=== PATIENT | female | born 2000 | race Caucasian/White ===

== ENCOUNTER 2023-08-19 20:36 | Emergency (ER) | payer OTHER ==
[2023-08-19 21:03] LABS: BILIRUBIN,URINE NEGATIVE (NEGATIVE); GLUCOSE, URINE (UA) NEGATIVE (NEGATIVE); KETONES,URINE (UA) TRACE mg/dL (NEGATIVE); LEUKOCYTE ESTERASE, URINE NEGATIVE (NEGATIVE); NITRITE,URINE NEGATIVE (NEGATIVE); OCCULT BLOOD,URINE TRACE-INTA (NEGATIVE); PROTEIN,URINE NEGATIVE (NEGATIVE); UROBILINOGEN,URINE 0.2 (NORMAL) E.U./dL (NORMAL)
[2023-08-19 21:05] LABS: CLARITY,URINE CLEAR (CLEAR); HCG UR QUAL NEGATIVE
[2023-08-19 21:13] LABS: BASOPHILS % (AUTO) 0.4 %; EOSINOPHILS % (AUTO) 0.2 %; HCT - HEMATOCRIT 43.1 % (37.0-47.0); HGB - HEMOGLOBIN 14.3 g/dL (12.0-16.0); LYMPHOCYTES # (AUTO) 1.6 10^3/uL (1.5-3.5); LYMPHOCYTES % (AUTO) 19.6 %; MEAN CORPUSCULAR HEMOGLOBIN 32.2 pg (27.0-31.0); MEAN CORPUSCULAR HGB CONC 33.2 g/dL (32.0-36.0); MEAN CORPUSCULAR VOLUME 97.1 fL (81.0-99.0); MEAN PLATELET VOLUME 11.4 fL (7.9-10.8); MONOCYTES # (AUTO) 0.7 10^3/uL (0.0-1.0); MONOCYTES % (AUTO) 8.7 %; NEUTROPHILS # (AUTO) 5.9 10^3/uL (1.5-6.6); NEUTROPHILS % (AUTO) 70.9 %; PLT - PLATELET COUNT 255 10^3/uL (130-450); RED BLOOD COUNT 4.44 10^6/uL (4.20-5.40); RED CELL DISTRIBUTION WIDTH 11.8 % (12.0-15.0); WHITE BLOOD COUNT 8.3 x10^3/uL (4.8-10.8)
[2023-08-19 21:24] LABS: ALBUMIN 4.8 g/dL (3.2-5.5); ALBUMIN/GLOBULIN RATIO 1.7 (1.0-2.2); BILIRUBIN,TOTAL 0.6 mg/dL (0.2-1.0); CALCIUM 9.8 mg/dL (8.5-10.3); CREATININE 0.7 mg/dL (0.6-1.3); POTASSIUM 3.8 mmol/L (3.5-4.5); TOTAL PROTEIN 7.7 g/dL (6.4-8.9)
--- NOTE | 2023-08-19 21:35 | ED Physician Documentation ---
PD HPI ABD PAIN - Stated complaint Stated Complaint: LOWER RT ABD PX - Chief complaint Chief Complaint: Abd Pain - History obtained from History obtained from: Patient - Additional information Additional information: 23-year-old female presents by private vehicle from home for 3 days of intermittent, nonradiating, right-sided lower abdominal pain. Patient states that she has health anxiety and has been complaining to her about her abdominal pain, who is [place]. requested that the patient be evaluated in the emergency department. Patient is currently pain-free. Denies nausea, vomiting, vaginal bleeding, fevers, other complaints. She states that she did have constipation prior to symptom onset, but did have a bowel movement yesterday. Review of Systems Constitutional: denies: Fever, Chills Cardiac: denies: Chest pain / pressure, Palpitations, Calf pain Respiratory: denies: Dyspnea, Cough GI: reports: Abdominal Pain, Constipation. denies: Nausea, Vomiting, Diarrhea : denies: Dysuria, Frequency, Hesitancy, Unable to Void, Vaginal bleeding Skin: denies: Rash, Lesions, Abrasion (s) Neurologic: denies: Generalized weakness, Focal weakness, Numbness PD PAST MEDICAL HISTORY - Past Medical History Past Medical History: No - Past Surgical History Past Surgical History: No - Present Medications Home Medications: Ambulatory Orders Medication Instructions Recorded Confirmed No Known Home Medications 08/19/23 08/19/23 - Allergies Allergies/Adverse Reactions: Allergies Allergy/AdvReac Type Severity Reaction Status Date / Time No Known Drug Allergies Allergy Verified 08/19/23 20:52 - Social History Does the pt smoke?: No Smoking Status: Never smoker Does the pt drink ETOH?: No Does the pt have substance abuse?: No - Immunizations Immunizations are current?: Yes - POLST Patient has POLST: No PD ED PE NORMAL - Vitals Vital signs reviewed: Yes - General General: Alert and oriented X 3, No acute distress, Well developed/nourished - Cardiac Cardiac: RRR, Strong equal pulses - Respiratory Respiratory: No respiratory distress, Clear bilaterally - Abdomen Abdomen: Soft, Non tender, Non distended, No organomegaly, Other (no reproducible tenderness to palpation) - Derm Derm: Normal color, Warm and dry, No rash - Extremities Extremities: No deformity, No tenderness to palpate, Normal ROM s pain Results - Vitals Vitals: Vital Signs - 24 hr 08/19/23 08/19/23 20:40 21:55 Temperature 37.3 C 36.4 C L Heart Rate 116 H 102 H Respiratory 16 16 Rate Blood Pressure 137/86 H 128/70 O2 Saturation 96 97 Oxygen O2 Source Room air - Labs Labs: Laboratory Tests 08/19/23 08/19/23 08/19/23 20:55 20:55 21:06 WBC 8.3 RBC 4.44 Hgb 14.3 Hct 43.1 MCV 97.1 MCH 32.2 H MCHC 33.2 RDW 11.8 L Plt Count 255 MPV 11.4 H Neut # (Auto) 5.9 Lymph # (Auto) 1.6 [place] # (Auto) 0.7 Eos # (Auto) 0.0 Baso # (Auto) 0.0 Absolute Nucleated RBC 0.00 Nucleated RBC % 0.0 Sodium Potassium Chloride Carbon Dioxide Anion Gap BUN Creatinine Estimated GFR (MDRD) Glucose Calcium Total Bilirubin AST ALT Alkaline Phosphatase Total Protein Albumin Globulin Albumin/Globulin Ratio Lipase Urine Color YELLOW Urine Clarity CLEAR Urine pH 6.0 Ur Specific [place] 1.025 Urine Protein NEGATIVE Urine Glucose (UA) NEGATIVE Urine Ketones TRACE Urine Occult Blood TRACE-INTA Urine Nitrite NEGATIVE Urine Bilirubin NEGATIVE Urine Urobilinogen 0.2 (NORMAL) Ur Leukocyte Esterase NEGATIVE Ur Microscopic Review NOT INDICATED Urine Culture Comments NOT INDICATED Urine HCG, Qual NEGATIVE 08/19/23 21:06 WBC RBC Hgb Hct MCV MCH MCHC RDW Plt Count MPV Neut # (Auto) Lymph # (Auto) [place] # (Auto) Eos # (Auto) Baso # (Auto) Absolute Nucleated RBC Nucleated RBC % Sodium 139 Potassium 3.8 Chloride 102 Carbon Dioxide 23 Anion Gap 14.0 H BUN 11 Creatinine 0.7 Estimated GFR (MDRD) 102 Glucose 105 H Calcium 9.8 Total Bilirubin 0.6 AST 22 ALT 24 Alkaline Phosphatase 43 Total Protein 7.7 Albumin 4.8 Globulin 2.9 Albumin/Globulin Ratio 1.7 Lipase 20 Urine Color Urine Clarity Urine pH Ur Specific [place] Urine Protein Urine Glucose (UA) Urine Ketones Urine Occult Blood Urine Nitrite Urine Bilirubin Urine Urobilinogen Ur Leukocyte Esterase Ur Microscopic Review Urine Culture Comments Urine HCG, Qual PD Medical Decision Making - ED course Complexity details: reviewed results, re-evaluated patient, considered differential, d/w patient ED course: 3 days of intermittent right-sided abdominal pain. Patient states that at the worst the pain is a 3 or 4, however she does have health anxiety is concerned that there may be a problem with her appendix. Laboratory work is unremarkable, no leukocytosis, no left shift, no sterile pyuria. Abdomen is soft, there is absolutely no reproducible tenderness to light or deep palpation. With normal labs and reassuring exam this is highly unlikely to be appendicitis. Question if patient possibly has ovarian cysts. Currently no ultrasound in house to perform formal pelvic ultrasound. Discussed results of labs with patient and reassuring physical exam findings. Shared decision making with patient, I recommended against CT at this time given the normal exam and normal labs. Patient is in agreement, she states that she feels reassured by being evaluated in the emergency department, she will follow with primary care and [facility] if she continues to experience symptoms and will return to the emergency department if her pain worsens. Departure - Departure Disposition: 01 Home, Self Care Clinical Impression: Abdominal pain Qualifiers: Abdominal location: right lower quadrant Qualified Code(s): R10.31 - Right lower quadrant pain Condition: Stable Instructions: ED Abdominal Pain Female Non-Specific Abdominal Pain Comments: Take Tylenol and Motrin as needed for pain. Follow-up with either primary care physician or [facility]. As we discussed you may have ovarian cysts contributing to your pain, but we do not currently have ultrasound in the ED to confirm this diagnosis. If your pain becomes severe, worsens, or you develop fevers and vomiting please return for repeat evaluation. Forms: PCP List Discharge Date/Time: 08/19/23 21:55
[2023-08-19 22:24] VITALS: BP 128/70; O2SAT 97
== END 2023-08-19 21:55 | disposition home or self-care (01) ==
LOC: ED 20:36
DX: R10.31 Right lower quadrant pain (principal)
CPT/HCPCS: 36415; 80053; 81001; 81003; 81025; 83690; 85025; 87086; 99283

== ENCOUNTER 2023-09-10 09:47 | Emergency (ER) | payer OTHER ==
[2023-09-10 10:15] VITALS: O2SAT 99
[2023-09-10 12:12] LABS: BASOPHILS % (AUTO) 0.3 %; EOSINOPHILS % (AUTO) 0.3 %; HCT - HEMATOCRIT 43.2 % (37.0-47.0); HGB - HEMOGLOBIN 14.3 g/dL (12.0-16.0); LYMPHOCYTES # (AUTO) 1.2 10^3/uL (1.5-3.5); LYMPHOCYTES % (AUTO) 17.3 %; MEAN CORPUSCULAR HEMOGLOBIN 32.2 pg (27.0-31.0); MEAN CORPUSCULAR HGB CONC 33.1 g/dL (32.0-36.0); MEAN CORPUSCULAR VOLUME 97.3 fL (81.0-99.0); MEAN PLATELET VOLUME 11.3 fL (7.9-10.8); MONOCYTES # (AUTO) 0.5 10^3/uL (0.0-1.0); MONOCYTES % (AUTO) 7.8 %; PLT - PLATELET COUNT 226 10^3/uL (130-450); RED BLOOD COUNT 4.44 10^6/uL (4.20-5.40); RED CELL DISTRIBUTION WIDTH 11.9 % (12.0-15.0); WHITE BLOOD COUNT 6.8 x10^3/uL (4.8-10.8)
[2023-09-10 12:28] LABS: HCG,QUALITATIVE BLOOD NEGATIVE
[2023-09-10 12:43] LABS: ALBUMIN 4.7 g/dL (3.2-5.5); ALBUMIN/GLOBULIN RATIO 1.7 (1.0-2.2); ALKALINE PHOSPHATASE 36 IU/L (42-121); ALT ALANINE AMINOTRANSFERASE 12 IU/L (10-60); AST ASPARTATE AMINOTRANSFERASE 13 IU/L (10-42); BILIRUBIN,TOTAL 0.6 mg/dL (0.2-1.0); BUN - BLOOD UREA NITROGEN 15 mg/dL (6-20); CALCIUM 9.5 mg/dL (8.5-10.3); CARBON DIOXIDE - CO2 26 mmol/L (21-32); CHLORIDE 106 mmol/L (101-111); CREATININE 0.7 mg/dL (0.6-1.3); GFR - MDRD 102 (>89); GLUCOSE 91 mg/dL (74-104); POTASSIUM 3.9 mmol/L (3.5-4.5); SODIUM 140 mmol/L (135-145); TOTAL PROTEIN 7.4 g/dL (6.4-8.9)
--- NOTE | 2023-09-10 13:00 | ED Physician Documentation ---
History of Present Illness - Stated complaint Stated Complaint: LT SIDE JAW PX, IRREGULAR HEART RATE - Chief complaint Chief Complaint: General - History obtained from History obtained from: Patient - Additonal information Additional information: Patient is a 23-year-old female with a self-reported history of anxiety presenting for evaluation of feeling palpitations yesterday. She reports feeling her heart beating fast yesterday which was intermittent. She reports feeling lightheaded with this. She also reports having an achiness in the left neck that has been present for 5 weeks. Nothing makes it better or worse. She has also reported fullness in her ears for the past few day and has had ongoing nasal congestion. Medication she takes is omeprazole for indigestion. Denies fever, cough, chest pain, difficulty breathing. No vomiting. No extremity numbness or tingling. Denies family history of early coronary artery disease. Review of Systems Constitutional: denies: Fever Nose: reports: Congestion Cardiac: reports: Palpitations. denies: Chest pain / pressure Respiratory: denies: Dyspnea GI: denies: Vomiting : denies: Dysuria Neurologic: denies: Syncope PD PAST MEDICAL HISTORY - Past Medical History Past Medical History: Yes Cardiovascular: None Respiratory: None Neuro: None Endocrine/Autoimmune: None GI: GERD PUBLIC HEALTH POLICY ANALYST: None : None HEENT: None Psych: Anxiety Musculoskeletal: None Derm: None - Past Surgical History Past Surgical History: No - Present Medications Home Medications: Ambulatory Orders Medication Instructions Recorded Confirmed Omeprazole Magnesium 20 mg PO DAILY 09/10/23 09/10/23 - Allergies Allergies/Adverse Reactions: Allergies Allergy/AdvReac Type Severity Reaction Status Date / Time No Known Drug Allergies Allergy Verified 09/10/23 10:01 - Social History Does the pt smoke?: No Smoking Status: Never smoker Does the pt drink ETOH?: No Does the pt have substance abuse?: No - Immunizations Immunizations are current?: Yes - POLST Patient has POLST: No PD ED PE NORMAL - General General: Alert and oriented X 3, No acute distress, Well developed/nourished - HEENT HEENT: Atraumatic, PERRL, EOMI, Ears normal, Moist mucous membranes, Pharynx benign - Neck Neck: Supple, no meningeal sign, No adenopathy - Cardiac Cardiac: RRR, Strong equal pulses - Respiratory Respiratory: No respiratory distress - Derm Derm: Warm and dry - Neuro Neuro: Alert and oriented X 3, No motor deficit, Normal speech Results - Vitals Vitals: Vital Signs - 24 hr 09/10/23 09/10/23 10:02 12:42 Temperature 36.6 C Heart Rate 98 Heart Rate [ 90 Sitting] Heart Rate [ 96 Standing] Heart Rate [ 86 Supine] Respiratory 16 Rate Blood Pressure 116/75 Blood Pressure 124/80 [Sitting] Blood Pressure 130/80 [Standing] Blood Pressure 120/74 [Supine] O2 Saturation 99 Oxygen O2 Source Room air - EKG (time done) 1007 EKG releavant findings:: EKG personally interpreted by author of this note. Relevant findings are: Rate 98, normal sinus rhythm, no STEMI, QTc 428 - Labs Labs: Laboratory Tests 09/10/23 09/10/23 12:03 12:03 WBC 6.8 RBC 4.44 Hgb 14.3 Hct 43.2 MCV 97.3 MCH 32.2 H MCHC 33.1 RDW 11.9 L Plt Count 226 MPV 11.3 H Neut # (Auto) 5.0 Lymph # (Auto) 1.2 L [place] # (Auto) 0.5 Eos # (Auto) 0.0 Baso # (Auto) 0.0 Absolute Nucleated RBC 0.00 Nucleated RBC % 0.0 Sodium 140 Potassium 3.9 Chloride 106 Carbon Dioxide 26 Anion Gap 8.0 BUN 15 Creatinine 0.7 Estimated GFR (MDRD) 102 Glucose 91 Calcium 9.5 Total Bilirubin 0.6 AST 13 ALT 12 Alkaline Phosphatase 36 L Total Protein 7.4 Albumin 4.7 Globulin 2.7 Albumin/Globulin Ratio 1.7 Serum HCG, Qual NEGATIVE PD Medical Decision Making - ED course Complexity details: reviewed results, d/w patient ED course: Patient presenting for evaluation of intermittent episodes of palpitations where she feels her heart racing. Also reports having pain in her jaw and neck for 5 weeks that is intermittent. No pain here. Also reports having some nasal congestion and ear pressure. No signs of bacterial infection on exam.Overall well-appearing. Stable vital signs. Orthostatics are negative. EKG is reviewed and nonischemic. Patient has no risk factors for ACS and I do not think her symptoms today suggest acute coronary syndrome. CBC and chemistries were obtained and reviewed without significant findings. hCG is negative. Patient counseled on need for close follow-up and may need further testing such as a Holter monitor. She is counseled on concerning symptoms to return for. Departure - Departure Disposition: 01 Home, Self Care Clinical Impression: Palpitations Condition: Stable Instructions: ED Palpitations Follow-Up: MADHAVI Taylor [Provider Group] Comments: Your testing today does not show any issues with electrolytes. We also checked your heart rate and blood pressure in different positions and do not notice a significant change when you are standing. I would recommend close follow-up with your primary care at the [facility] regarding her palpitations as you may need further testing such as a Holter monitor. Return to the ER with any new or worsening symptoms. Forms: PCP List Discharge Date/Time: 09/10/23 13:13
[2023-09-10 13:18] VITALS: BP 120/74
== END 2023-09-10 13:13 | disposition home or self-care (01) ==
LOC: ED 09:47
DX: R00.2 Palpitations (principal)
CPT/HCPCS: 36415; 80053; 84703; 85025; 93005; 99283

== ENCOUNTER 2023-10-05 05:11 | Emergency (ER) | payer OTHER ==
[2023-10-05 05:44] LABS: BASOPHILS % (AUTO) 0.5 %; EOSINOPHILS # (AUTO) 0.1 10^3/uL (0.0-0.7); EOSINOPHILS % (AUTO) 1.2 %; HCT - HEMATOCRIT 43.5 % (37.0-47.0); HGB - HEMOGLOBIN 14.7 g/dL (12.0-16.0); LYMPHOCYTES # (AUTO) 2.5 10^3/uL (1.5-3.5); LYMPHOCYTES % (AUTO) 40.9 %; MEAN CORPUSCULAR HEMOGLOBIN 32.2 pg (27.0-31.0); MEAN CORPUSCULAR HGB CONC 33.8 g/dL (32.0-36.0); MEAN CORPUSCULAR VOLUME 95.2 fL (81.0-99.0); MEAN PLATELET VOLUME 11.5 fL (7.9-10.8); MONOCYTES # (AUTO) 0.6 10^3/uL (0.0-1.0); MONOCYTES % (AUTO) 9.1 %; NEUTROPHILS # (AUTO) 2.9 10^3/uL (1.5-6.6); NEUTROPHILS % (AUTO) 48.1 %; PLT - PLATELET COUNT 233 10^3/uL (130-450); RED BLOOD COUNT 4.57 10^6/uL (4.20-5.40); RED CELL DISTRIBUTION WIDTH 11.8 % (12.0-15.0); WHITE BLOOD COUNT 6.1 x10^3/uL (4.8-10.8)
[2023-10-05 05:52] LABS: BILIRUBIN,URINE NEGATIVE (NEGATIVE); GLUCOSE, URINE (UA) NEGATIVE (NEGATIVE); KETONES,URINE (UA) NEGATIVE (NEGATIVE); LEUKOCYTE ESTERASE, URINE NEGATIVE (NEGATIVE); NITRITE,URINE NEGATIVE (NEGATIVE); OCCULT BLOOD,URINE MODERATE (NEGATIVE); PROTEIN,URINE NEGATIVE (NEGATIVE); UROBILINOGEN,URINE 0.2 (NORMAL) E.U./dL (NORMAL)
[2023-10-05 05:53] LABS: CLARITY,URINE CLEAR (CLEAR); HCG UR QUAL NEGATIVE
[2023-10-05] MEDS: SODIUM CHLORIDE 0.9% 1,000 ML IV STA (05:53)
[2023-10-05] MEDS: KETOROLAC 15 MG/ML VIAL IVP STA (05:53)
[2023-10-05 05:59] LABS: BACTERIA,URINE Few /HPF (None Seen); SQUAMOUS EPITHELIAL CELL,UR MANY Squamous (<= Few); WBC,URINE 0-3 /HPF (0-5)
[2023-10-05 06:00] LABS: ALBUMIN/GLOBULIN RATIO 1.7 (1.0-2.2); BILIRUBIN,TOTAL 0.8 mg/dL (0.2-1.0); CREATININE 0.8 mg/dL (0.6-1.3); POTASSIUM 3.4 mmol/L (3.5-4.5)
--- NOTE | 2023-10-05 06:07 | ED Physician Documentation ---
History of Present Illness - Stated complaint Stated Complaint: ABD PX - Chief complaint Chief Complaint: Abd Pain - History obtained from History obtained from: Patient - Additonal information Additional information: 23yF with recently diagnosed R kidney stone p/w RLQ pain X 2 days, progressively worsening. denies nausea, diarrhea, urinary sx, fever, back pain. Review of Systems Constitutional: denies: Fever, Chills, Myalgias, Fatigue Cardiac: denies: Chest pain / pressure Respiratory: denies: Dyspnea GI: reports: Abdominal Pain. denies: Nausea, Vomiting, Constipation, Diarrhea : denies: Dysuria, Frequency, Hesitancy, Hematuria Musculoskeletal: denies: Back pain PD PAST MEDICAL HISTORY - Past Medical History Past Medical History: Yes Cardiovascular: None Respiratory: None Neuro: None Endocrine/Autoimmune: None GI: GERD CONTROL CLERK HEAD: None : None HEENT: None Psych: Anxiety Musculoskeletal: None Derm: None - Past Surgical History Past Surgical History: No - Present Medications Home Medications: Ambulatory Orders Medication Instructions Recorded Confirmed No Known Home Medications 10/05/23 10/05/23 - Allergies Allergies/Adverse Reactions: Allergies Allergy/AdvReac Type Severity Reaction Status Date / Time No Known Drug Allergies Allergy Verified 10/05/23 05:22 - Social History Does the pt smoke?: No Smoking Status: Never smoker Does the pt drink ETOH?: No Does the pt have substance abuse?: No - Immunizations Immunizations are current?: Yes - POLST Patient has POLST: No PD ED PE NORMAL - Vitals Vital signs reviewed: Yes - General General: Alert and oriented X 3, No acute distress, Well developed/nourished - HEENT HEENT: Atraumatic, PERRL, EOMI, Moist mucous membranes, Pharynx benign - Neck Neck: Supple, no meningeal sign - Cardiac Cardiac: RRR - Respiratory Respiratory: No respiratory distress, Clear bilaterally - Abdomen Abdomen: Other (RLQ ttp, with rebound tenderness) - Back Back: No CVA TTP - Derm Derm: Normal color, Warm and dry Results - Vitals Vitals: Vital Signs - 24 hr 10/05/23 05:15 Temperature 37.0 C Heart Rate 102 H Respiratory 18 Rate Blood Pressure 134/88 H O2 Saturation 98 Oxygen O2 Source Room air - Labs Labs: Laboratory Tests 10/05/23 10/05/23 10/05/23 05:32 05:32 05:36 WBC 6.1 RBC 4.57 Hgb 14.7 Hct 43.5 MCV 95.2 MCH 32.2 H MCHC 33.8 RDW 11.8 L Plt Count 233 MPV 11.5 H Neut # (Auto) 2.9 Lymph # (Auto) 2.5 [place] # (Auto) 0.6 Eos # (Auto) 0.1 Baso # (Auto) 0.0 Absolute Nucleated RBC 0.00 Nucleated RBC % 0.0 Sodium Potassium Chloride Carbon Dioxide Anion Gap BUN Creatinine Estimated GFR (MDRD) Glucose Calcium Total Bilirubin AST ALT Alkaline Phosphatase Total Protein Albumin Globulin Albumin/Globulin Ratio Lipase Urine Color YELLOW Urine Clarity CLEAR Urine pH 6.0 Ur Specific [place] 1.020 Urine Protein NEGATIVE Urine Glucose (UA) NEGATIVE Urine Ketones NEGATIVE Urine Occult Blood MODERATE H Urine Nitrite NEGATIVE Urine Bilirubin NEGATIVE Urine Urobilinogen 0.2 (NORMAL) Ur Leukocyte Esterase NEGATIVE Urine RBC 6-10 H Urine WBC 0-3 Ur Squamous Epith Cells MANY Squamous H Urine Bacteria Few Urine Culture Comments NOT INDICATED Urine HCG, Qual NEGATIVE 10/05/23 05:36 WBC RBC Hgb Hct MCV MCH MCHC RDW Plt Count MPV Neut # (Auto) Lymph # (Auto) [place] # (Auto) Eos # (Auto) Baso # (Auto) Absolute Nucleated RBC Nucleated RBC % Sodium 138 Potassium 3.4 L Chloride 105 Carbon Dioxide 24 Anion Gap 9.0 BUN 10 Creatinine 0.8 Estimated GFR (MDRD) 87 L Glucose 97 Calcium 10.0 Total Bilirubin 0.8 AST 17 ALT 12 Alkaline Phosphatase 43 Total Protein 8.0 Albumin 5.0 Globulin 3.0 Albumin/Globulin Ratio 1.7 Lipase 16 Urine Color Urine Clarity Urine pH Ur Specific [place] Urine Protein Urine Glucose (UA) Urine Ketones Urine Occult Blood Urine Nitrite Urine Bilirubin Urine Urobilinogen Ur Leukocyte Esterase Urine RBC Urine WBC Ur Squamous Epith Cells Urine Bacteria Urine Culture Comments Urine HCG, Qual PD Medical Decision Making - ED course ED course: 23yF presents to the ED with RLQ pain. patient has hx kidney stones on R side so suspect renal etiology however we cannot completely rule out appendicitis and she does have rebound tenderness therefore shared decision was made to undergo CT a/p. IVF provided to flush out contrast. cbc, abdominal panel, ua, hcg ordered. IV toradol provided with improvement in pain. Likely endorse to incoming daytime ED MD at 7am shift change pending ct results. Departure - Departure Clinical Impression: Abdominal pain Condition: Stable
[2023-10-05] MEDS ORDERED: iohexoL-300 100 ML VIAL ONE (06:12)
[2023-10-05] MEDS: iohexoL-300 100 ML VIAL IVP ONE (06:38)
--- NOTE | 2023-10-05 07:51 | CT Report ---
PROCEDURE: Abdomen/Pelvis W INDICATIONS: RLQ pain CONTRAST: Omni 300, 100mls TECHNIQUE: After the administration of intravenous contrast, a CT scan of the abdomen and pelvis was performed. Images were recorded and evaluated at appropriate window settings. Reformats: coronal and sagittal. F or radiation dose reduction, the following was used: automated exposure control, adjustment of mA and /or kV according to patient size. COMPARISON: None. FINDINGS: Image quality: Diagnostic. Lower chest: Unremarkable. Liver: No solid mass. Gallbladder and biliary tree: No radiopaque stones or wall thickening. No biliary dilation. Spleen: No splenomegaly. Pancreas: No pancreatic ductal dilation. Adrenals: No adrenal nodule. Kidneys and ureters: No hydronephrosis. No renal cystic lesion which requires follow up. No solid mas s. 5 mm nonobstructing right renal stone. Stomach, bowel and peritoneum: No bowel distension. No pathologic free fluid. A normal appendix is no jefferson. There is moderate diffuse stool burden. Lymph nodes: No central or retroperitoneal adenopathy. Vessels: No infrarenal aortic aneurysm. PELVIS Reproductive organs: Unremarkable. Bladder: No abnormal wall thickening, accounting for underdistention. Pelvic lymph nodes: No pelvic adenopathy by size criteria. Bones: No aggressive osseous abnormality. Other: No significant ventral or inguinal hernia. IMPRESSION: 1. No acute abdominal process. 2. Normal appendix. 3. Moderate diffuse fecal load. 4. Right nephrolithiasis. No obstructing stone. Findings are concordant with preliminary interpretation provided by [facility]. Reviewed by: Jean Lehman MD on 10/05/2023 7:49 AM [facility] Approved by: Jean Lehman MD on 10/05/2023 7:49 AM PST Station ID: [id number]
--- NOTE | 2023-10-05 08:18 | ED Physician Documentation ---
ED Addendum - Addendum Addendum: 10/05/23 08:16 The patient was here for right sided lower abdominal pain. Pending CT scan report on change of shift. The CT report does not show any acute abnormalities. Comment was made on moderate to increased stool burden. Consideration for some intestinal stretching related to constipation. I talked with the patient that her appendix is normal and no obvious ovarian abnormalities. There is a stone in the kidney but no ureteral stones. We discussed use of stool softeners and perhaps short-term laxative for a day or 2 combined with anti-inflammatories and Tylenol. She is okay with that. Disposition: The patient discharged home in stable condition. Diagnoses: 1. Right lower abdominal pain 2. Normal appendix 3. Increased stool burden on CT
[2023-10-05] MEDS: ACETAMINOPHEN 325 MG TABLET PO STA (08:28)
[2023-10-05] MEDS: DOCUSATE SODIUM 250 MG CAPSULE PO STA (08:29)
[2023-10-05 08:42] VITALS: BP 116/85; O2SAT 98
== END 2023-10-05 08:38 | disposition home or self-care (01) ==
LOC: ED 05:11
DX: R10.31 Right lower quadrant pain (principal)
CPT/HCPCS: 36415; 74177; 80053; 81001; 81025; 83690; 85025; 96374; 99283; 99284; A9270; Q9967; 87086